=== PATIENT | male | born 1970 | race Caucasian/White ===

== ENCOUNTER 2017-03-06 09:26 | Day surgery (SDC) | payer MEDICAID ==
[~2017-03-06 09:26] MED LIST: SODIUM CHLORIDE ONE; ceFAZolin 1 GM in NORMAL SALINE MINI-BAG+ 100 ML IV ONE
[2017-03-06] MEDS ORDERED: MIDAZOLAM HCL 2 MG/2 ML SYR IV ONE ×2 (09:33→09:35)
[2017-03-06] MEDS ORDERED: LIDOCAINE HCL 1% 20 ML VIAL SUBCUT ONE ×2 (09:33→09:35)
[2017-03-06] MEDS ORDERED: ceFAZolin 1 GM in NORMAL SALINE MINI-BAG+ 100 ML IV ONE (09:35)
[2017-03-06] MEDS ORDERED: FAMOTIDINE IN SALINE, ISO-OSM 20 MG/50 ML PIGGYBACK IV SCH (09:45)
[2017-03-06] MEDS ORDERED: ROPIVACAINE HCL ONE (09:50)
[2017-03-06] MEDS ORDERED: FENTANYL 100 MCG/2 ML VIAL ONE (09:52)
[2017-03-06] MEDS ORDERED: ONDANSETRON HCL 4 MG/2 ML VIAL ONE (09:52)
[2017-03-06] MEDS ORDERED: DEXAMETHASONE 4 MG/ML VIAL ONE (09:53)
[2017-03-06] MEDS ORDERED: ROCURONIUM BROMIDE 50 MG/5 ML VIAL IV ONE (09:53)
[2017-03-06] MEDS ORDERED: SUGAMMADEX SODIUM 200 MG/2 ML VIAL IV ONE (09:53)
[2017-03-06] MEDS ORDERED: LACTATED RINGERS 1,000 ML IV SCH ×2 (10:00)
[2017-03-06 10:30] VITALS: PULSE 104; RESP 16; TEMP 98.6; O2SAT 81
[2017-03-07] MEDS ORDERED: IPRATROPIUM/ALBUTEROL 0.5/3 MG 3 ML AMPUL.NEB INHALATION ONE ×2 (10:40→11:22)
[2017-03-07] MEDS ORDERED: METHYLPREDNISOLONE SOD 125 MG/2 ML VIAL ONE (11:22)
--- NOTE | 2017-03-17 13:53 | PREOPERATIVE H&P ---
History of Present Illness (Roxanna Whiteside RN; 03/02/2017 10:19 AM) The patient is a 46 year old male who presents for a consult. The patient is seen in consultation for Dr. Sneed. Subjective Barber(Kaden Mcleod M.D.; 03/03/2017 10:50 AM) CC: Consult. Patient is a 46-year-old male has been referred by Orthopedic Surgeon Dr. Sneed for consultation, preoperative history and physical and surgical clearance. Patient is scheduled for a right rotator cuff surgery on 03/06/17. Please see Dr. Sneed's notes for further details. Patient has no other complaints at this time. He does plan to travel to [place] later this year. He has underlying obstructive sleep apnea for which he uses CPAP. Reviewed updated allergies, medications, past medical history, social history and family history in detail with no significant changes warranted. ROS: No heart, lung, kidney, liver, diabetes, thyroid, seizures, PUD, hypertension, hyperlipidemia, skin, allergies or bleeding disorders. No urinary problems. PREVENTIVE HEALTH: Tdap 2013. Declines flu shots. In light of travel to [place] recommended hepatitis A and B vaccine series and the oral typhoid vaccine which he plans to do after his surgery. Problem List/Past Medical (Roxanna Whiteside RN; 03/02/2017 4:27 PM) Complete tear of right rotator cuff (M75.121) Strain of tendon of right rotator cuff (S46.011A) Degeneration of intervertebral disc of lumbar region (M51.36) L-4; Multiple Surgeries Insomnia (G47.00) ED (erectile dysfunction) (N52.9) Tendinopathy of right rotator cuff (M67.911) Panic attack (F41.0) Hypotestosteronism (E29.1)2016 KATHY on CPAP (G47.33) Allergies (Roxanna Whiteside RN; 03/02/2017 10:17 AM) No Known Drug Allergies Family History (Roxanna Whiteside RN; 03/02/2017 10:17 AM) Mother MS, Thyroid Paternal Grandfather @ 73 of Colon Cancer Maternal Uncle MS Father Colon Polyps Paternal Uncle Colon Cancer, Stomach Cancer Social History (Roxanna Whiteside RN; 03/02/2017 10:17 AM) No drug use Occupation [employer] Alcohol use Moderate alcohol use. Marital status . Engaged Number of Children 3. + 3 Stepchildren Tobacco use Current every day smoker. 1 PPD Medication History (Roxanna Whiteside RN; 03/02/2017 10:17 AM) Medications Reconciled Depo-Testosterone (200MG/ML Solution, 2 Milliliters Intramuscular Q Month [ 400mg Total Q Month], Taken starting 06/07/2016) Active. ALPRAZolam (0.5MG Tablet, 1 Oral daily, Taken starting 11/11/2016) Active. Multi-Vitamin (1 Oral daily) Active. Past Surgical History (Roxanna Whiteside RN; 03/02/2017 4:29 PM) Discectomy Lumbar Spinal Fusion Cervical Vitals (Roxanna Whiteside RN; 03/02/2017 10:23 AM) 03/02/2017 10:19 AM Weight: 194.1 lb Height: 70.5in Height was reported by patient. Body Surface Area: 2.07 m Body Mass Index: 27.46 kg/m Temp.: 98.6F(Temporal) Pulse: 72 (Regular) Resp.: 16 (Unlabored) P.OX: 93% (Room air) BP: 136/86 (Sitting, Left Arm, Standard) Objective Barber(Kaden Mcleod M.D.; 03/03/2017 10:50 AM) GENERAL: Well-developed, well-nourished fit male in no acute distress, alert and oriented x3. HEENT: EOMI. PERRLA. Fundi benign with normal vessels and sharp disks. Normal conjunctivae. TM's normal. No coryza. Pharynx not injected. NECK: No lymphadenopathy. No thyromegaly. No carotid bruits. Neck supple. CHEST: Clear. No rales, rhonchi or wheezes. Good breath sounds and symmetry throughout. COR: Regular, rate and rhythm without murmurs, gallops, rubs or clicks. No JVD. No ectopy. ABDOMEN: Soft, nontender. No hepatosplenomegaly. No masses. No bruits. No inguinal nodes. Bowel sounds present. EXTREMITIES: No clubbing, cyanosis or edema. Good peripheral pulses. Please see Dr. Sneed's notes for further details with respect to the right shoulder. Right arm is neurovascularly intact. NEUROLOGIC: Cranial nerves 2-12 intact. Motor 5/5, sensory intact. DTRs 1+. Cerebellar function normal. EKG: Normal sinus rhythm at 97 b.p.m., Left axis deviation, PACs, borderline incomplerte bundle branch block, otherwise normal. Assessment & Plan (Roxanna Whiteside RN; 03/02/2017 4:30 PM) Pre-operative general physical examination (Z01.818) Story: Right Rotator Cuff Repair; Dr. Sneed Current Plans EKG, Complete (13739) Pt Education - How to access health information online: discussed with patient and provided information. Complete tear of right rotator cuff (M75.121) KATHY on CPAP (G47.33) Travel advice encounter (Z71.89) Encounter for immunization (Z23) Current Plans Immunization: HEP A/HEP B VACC, ADULT IM (45868) INJECTION OF ONE VACCINE (27243) Assessments Barber(Kaden Mcleod M.D.; 03/03/2017 10:50 AM) 1. Preoperative history and physical for right rotator cuff surgery. 2. Obstructive sleep apnea, on CPAP. 3. Smoker. Plans Barber(Kaden Mcleod M.D.; 03/03/2017 10:50 AM) 1. Lab work pending. 2. Encouraged patient to dramatically cut back and discussed smoking cessation. Consider switching to a Nicotine patch prior to his surgery. 3. Patient is considered cleared for above surgery otherwise. 4. Recommended hepatitis A/B 3 shot vaccine series along with the oral typhoid vaccine for travel to [place] later this year. JONATHAND
--- NOTE | 2017-03-17 13:55 | PREOPERATIVE H&P ---
History of Present Illness (Jose J Sneed DO; 02/22/2017 10:17 AM) The patient is a 46 year old male.Patient presents to review his MRI findings of his right shoulder. Allergies (Alexandrea Cardona, RN; 02/22/2017 9:01 AM) No Known Drug Allergies Family History (Alexandrea Cardona RN; 02/22/2017 9:01 AM) Uncle 2 Paternal uncle-colon polyps,colon cancer,stomach cancer Mother MS,thyroid Unremarkable Father colon polyps Uncle 1 Maternal uncle-MS Paternal Grandfather @73-colon cancer Social History (Alexandrea Cardona, RN; 02/22/2017 9:01 AM) Alcohol use Moderate alcohol use. Tobacco use Current some day smoker. 1 pack per day Medication History (Alexandrea Cardona RN; 02/22/2017 9:01 AM) Depo-Testosterone (200MG/ML Solution, 2 Milliliters Intramuscular Q Month [ 400mg Total Q Month], Taken starting 06/07/2016) Active. ALPRAZolam (0.5MG Tablet, 1 Oral daily, Taken starting 11/11/2016) Active. Ibuprofen (800MG Tablet, 1 tab Oral three times daily, as needed) Discontinued. Multi-Vitamin (1 Oral daily) Active. Medications Reconciled Review of Systems (Alexandrea Cardona RN; 02/22/2017 9:02 AM) General Not Present- Chills and Fever. Skin Not Present- Erythema, Skin Color Changes and Skin Problems. HEENT Present- Sleep Apnea (uses CPAP at [facility]). Neck Not Present- Neck Pain. Respiratory Not Present- Cough and Shortness of Breath. Cardiovascular Not Present- Chest Pain, Difficulty Breathing On Exertion, Fainting and Leg Pain and/or Swelling. Gastrointestinal Not Present- Abdominal Pain, Nausea and Vomiting. Male Genitourinary Not Present- Painful Urination and Urethral Discharge. Musculoskeletal Not Present- Decreased Range of Motion, Joint Pain, Joint Stiffness, Joint Swelling, Muscle Pain and Muscle Weakness. Neurological Not Present- Dizziness, Focal Neurological Symptoms, Numbness in extremities, Trouble walking and Weakness. Psychiatric Not Present- Anorexia, Anxiety and Depression. Endocrine Not Present- Weight Loss. Hematology Not Present- Bleeding Problems, DVT and Easy Bruising. Vitals (Alexandrea Cardona RN; 02/22/2017 9:00 AM) 02/22/2017 8:59 AM Weight: 200 lb Height: 70.5in Body Surface Area: 2.1 m Body Mass Index: 28.29 kg/m Temp.: 99.2F Pulse: 92 (Regular) Resp.: 16 (Unlabored) BP: 122/90 (Sitting, Left Arm, Standard) Physical Exam (Jose J Sneed DO; 02/22/2017 10:17 AM) The physical exam findings are as follows: Note:MRI demonstrates a full-thickness tear of his supraspinatus tendon. Also noted is partial tearing of his subscapularis. Mild arthritic changes of the acromioclavicular joint. Assessment & Plan (Jose J Sneed DO; 02/22/2017 10:18 AM) Complete tear of right rotator cuff (M75.121) Impression: After educating the patient regarding treatment options with their associated risks and benefits, the patient elected to proceed with surgical treatment of the injury/pathology with RIGHT ARTHROSCOPIC ROTATOR CUFF REPAIR. The risks and benefits of the specific procedure were explained and all questions and concerns were addressed and answered. Post operative rehabilitation requirements and expectations for optimal outcome were reviewed and the patient confirmed understanding these and committed to compliance. All questions answered. The patient will be optimized medically by consultation with their primary care physician prior to their procedure. Signed by Jose J Sneed DO (02/22/2017 10:19 AM) Patient was seen at bedside and there are no interval changes. Signed Jose J Sneed DO 03/06/2017 SANDRA
== END 2017-03-06 09:56 | disposition home or self-care (01) ==
LOC: SDS 09:26
PROVIDERS: ATTEND Orthopaedic Surgery
DX: Z53.09 Procedure and treatment not carried out because of other contraindication (principal); M75.121 Complete rotator cuff tear or rupture of right shoulder, not specified as traumatic
CPT/HCPCS: J2405; J2795; J2930; J3010; J7620

== ENCOUNTER 2017-03-07 09:52 | Observation (INO) | payer MEDICAID ==
[2017-03-07] MEDS ORDERED: ONDANSETRON HCL 4 MG/2 ML VIAL ONE (10:25)
[2017-03-07] MEDS ORDERED: KETOROLAC TROMETHAMINE 30 MG/ML VIAL ONE (10:25)
[2017-03-07] MEDS ORDERED: NORMAL SALINE 1,000 ML IV ONE (10:26)
[2017-03-07 10:27] LABS: BASOPHIL# 0.1 X 10^3uL (0.0-0.1); BASOPHILS 0.8 % (0.0-2.0); EOSINOPHILS 0.4 % (0.0-6.0); HEMATOCRIT 56.3 % (42.0-54.0); HEMOGLOBIN 19.7 g/dL (14.0-18.0); LYMPHOCYTES 27.2 % (20.0-40.0); LYMPHOCYTES# 2.7 X 10^3uL (0.8-3.8); MEAN CELL VOLUME 92.8 fL (80.0-100.0); MEAN CORPUS. HGB CONCENTRATION 35.1 g/dL (32.0-36.0); MEAN CORPUSCULAR HEMOGLOBIN 32.5 pg (29.0-35.0); MEAN PLATELET VOLUME 8.2 fL (7.4-10.4); MONOCYTES 6.7 % (2.0-10.0); MONOCYTES# 0.7 X 10^3uL (0.2-1.0); NEUTROPHILS 64.9 % (54.0-75.0); NEUTROPHILS# 6.5 X 10^3uL (2.6-6.7); PLATELET COUNT 192 X 10^3uL (130-440); RED BLOOD COUNT 6.06 X 10^6uL (4.20-6.10); RED CELL DISTRIBUTION WIDTH 13.9 % (11.5-14.5)
[2017-03-07 10:33] LABS: ALBUMIN 4.9 g/dL (3.5-5.0); ALKALINE PHOSPHATASE 49 U/L (38-126); ALT 128 U/L (21-72); AST 148 U/L (17-59); BILIRUBIN, DIRECT 0.2 mg/dL (0.0-0.4); BILIRUBIN, TOTAL 0.8 mg/dL (0.2-1.3); BLOOD UREA NITROGEN 11 mg/dL (9-20); CALCIUM 9.2 mg/dL (8.4-10.2); CHLORIDE 101 mmol/L (98-107); CREATININE 0.8 mg/dL (0.7-1.3); EST GLOMERULAR FILTRATION RATE > 60 mL/min; GLUCOSE 193 mg/dL (70-100); LIPASE 201 U/L (23-300); POTASSIUM 3.7 mmol/L (3.5-5.1); SODIUM 145 mmol/L (137-145); TOTAL PROTEIN 8.3 g/dL (6.3-8.2)
[2017-03-07] MEDS ORDERED: ZOLPIDEM TARTRATE 5 MG TABLET PO PRN (12:47)
[2017-03-07] MEDS ORDERED: ACETAMINOPHEN 325 MG TABLET PO PRN (12:47)
[2017-03-07] MEDS ORDERED: HOME MEDICATION LIST NEEDED 1 EA EACH MC ONE (12:47)
[2017-03-07] MEDS ORDERED: ALBUTEROL 0.083% 2.5 MG/3 ML VIAL.NEB NEB PRN (12:47)
[2017-03-07] MEDS ORDERED: AZITHROMYCIN 250 MG TABLET PO ONE (13:04)
--- NOTE | 2017-03-07 13:44 | ER NURSING DOCUMENTATION ---
Nurse's Notes [facility] Name:Jorge Lam Age:46 yrs Sex:Male :1970 Arrival Date:03/07/2017 Time:09:52 Bed4 Private MD:Kaden Mcleod Diagnosis:Reactive Airway Dz w/ Bronchitis;Hypoxia;Viral Illness Presentation: 03/07 10:16 Presenting complaint: Patient states: chills, body aches, and nausea. Transition of lp care: Home. Risk considerations: patient denies pain radiation to back or syncopal episode. Notified ED Physician of Wang Weaver notified. 10:16 Acuity: ALEJANDRO 3 lp 10:16 Method Of Arrival: Private Vehicle lp Triage Assessment: 10:23 General: Appears uncomfortable, Behavior is crying. Pain: Complains of pain in lp Generalized ache Pain currently is 9 out of 10 on a pain scale. EENT: No deficits noted. Reports nasal congestion nasal discharge that is watery. Neuro: No deficits noted. Cardiovascular: Capillary refill < 3 seconds Heart tones S1 S2. Respiratory: Breath sounds with wheezes bilaterally. GI: Bowel sounds present X 4 quads. : No deficits noted. Historical: - Allergies: No known drug Allergies; - Home Meds: 1. alprazolam 0.5 mg oral Tb24 1 tab once daily for Panic Disorder 2. depo testosterone 3. multivitamin oral tab - PMHx: hypotestosteronism; Lumbar degenerative disc disease; SLEEP APNEA; ANXIETY; tendinopathy of right rotator cuff; erectile dysfunction; insomnia; - PSHx: spinal fusion; Discectomy; CERVICAL SPINE SURGERY; - Tetanus: < 10 years. - Ebola Screening: : Patient negative for fever greater than or equal to 101.5 degrees Fahrenheit, and additional compatible Ebola Virus Disease symptoms. Patient denies exposure to infectious person. Patient denies travel to an Ebola-affected area in the 21 days before illness onset. . - Immunization history: Pneumococcal vaccine is not up to date, Patient has never been vaccinated Flu Vaccine None. - Social history: Smoking status: Patient uses tobacco products, current every day smoker. Screenin:30 Infectious Disease Risk None. Abuse screen: Denies threats or abuse. Denies injuries lp from another. Nutritional screening: No deficits noted. Assessment: 10:30 See Triage Assessment done by same RN. GI: Abd is soft and non tender X 4 quads. lp Reports nausea. Vital Signs: 09:57 BP 147 / 100; Pulse 97; Resp 18; Temp 97.5(O); Pulse Ox 93% on R/A; Weight 87.09 kg; lp Height 5 ft. 9 in. (175.26 cm); 10:00 BP 147 / 100; Pulse 98; Resp 16; Pulse Ox 94% on R/A; lp 10:15 Pulse Ox 85% on R/A; lp 10:30 BP 145 / 96; Pulse 98; Resp 16; Pulse Ox 97% on 2 lpm NC; lp 11:02 Pulse Ox 84% on R/A; lp 11:04 BP 141 / 89; Pulse 93; Resp 16; Pulse Ox 97% on 2 lpm NC; lp 12:44 BP 154 / 90; Pulse 105; Resp 18; Pulse Ox 92% on 2 lpm NC; lp 13:00 BP 153 / 96; Pulse 97; Resp 16; Pulse Ox 92% on 2 lpm NC; lp 13:00 BP 152 / 91; Pulse 101; Resp 14; Pulse Ox 93% on 2 lpm NC; lp 09:57 Body Mass Index 28.35 (87.09 kg, 175.26 cm) lp ED Course: 09:54 Patient arrived in ED. cc 09:54 Kaden Mcleod MD is Private Physician. cc 09:55 Javid Piña MD is Attending Physician. jm 10:[address] Piña notified. lp 10:05 Inserted peripheral IV: 20 gauge in left antecubital area and blood collected. lp 10:16 Nanda Bowers, BUZZ is Primary Nurse. lp 10:17 Triage completed. lp 10:30 Valuables Remains with patient Patient has correct armband on for positive lp identification. Placed in gown. Bed in low position. Call light in reach. Side rails up X 1. Warm blanket given. 10:52 Patient moved to radiology. sergei 10:53 CXR 2V [id number] In Process Unspecified. EDMS 10:56 Patient moved back from radiology. sergei 10:56 CXR 2V [id number] Sent. sergei 10:58 CXR 2V [id number] In Process Unspecified. EDMS 12:39 Other attached lp 12:40 Kaden Mcleod MD is Admitting Physician. chely Administered Medications: 10:15 Drug: NS 0.9% 1000 ml; Route: IV; Rate: bolus; Site: left antecubital; lp 12:14 Follow up: IV Status: Completed infusion; IV Intake: 1000ml lp 10:31 Drug: Zofran 4 mg; Route: IVP; Infused Over: 2 mins; Site: left antecubital; lp 11:06 Follow up: Response: Nausea is decreased lp 10:35 Drug: DuoNeb (Albuterol 2.5 mg, Atrovent 0.5 mg); 3 ml; Route: Nebulizer; lp 11:07 Follow up: Response: Wheezing diminished lp 11:16 Drug: DuoNeb (Albuterol 2.5 mg, Atrovent 0.5 mg); 3 ml; Route: Nebulizer; lp 12:15 Follow up: Response: Wheezing diminished lp 11:16 Drug: Solu-MEDROL 125 mg; Route: IVP; Site: left antecubital; lp 12:15 Follow up: Response: No adverse reaction lp 11:30 Drug: Toradol 30 mg; Route: IVP; Site: left antecubital; lp 12:24 Follow up: Response: Pain is decreased lp Point of Care Testing: Urine Dip: 12:37 pH: 7.0; ; Specific [place]: 1.015; Ketones: Negative; Glucose: Negative; Protein: lp Negative; Leukocytes: Negative; Nitrite: Negative ; Blood: Hemolyzed Trace; Bilirubin: Negative ; Urobilinogen: Normal Intake: 12:14 IV: 1000ml; Total: 1000ml. lp Outcome: 12:41 Decision to Admit by Provider. chely 12:45 Admitted to lp 12:45 Condition: stable 12:45 Instructed on need to admit 13:19 Report given to Nydia GERBER lp 13:41 Patient left the ED. rs Signatures: Dispatcher [employer] EDMS Breonna Murphy RN RN rs Pavlish, Lena, RN RN lp Meyer, John, MD MD jm Abbott, Adelina Pete
--- NOTE | 2017-03-07 13:44 | ER PHYSICIAN DOCUMENTATION ---
Physician Documentation [facility] Name:Jorge Lam Age:46 yrs Sex:Male :1970 Arrival Date:03/07/2017 Time:09:52 Bed4 Private MD:Kaden Mcleod ED, John Disposition: 03/07/17 12:41 Admit ordered for Kaden Mcleod. Preliminary diagnosis are Reactive Airway Dz w/ Bronchitis, Hypoxia, Viral Illness. - Bed requested for Medical/Surgical. - Condition is Fair. - Problem is new. - Symptoms are unchanged. 23 HR OBS Yes HPI: 03/07 11:12 This 46 yrs old Male presents to ER via Private Vehicle with complaints of jm Abd Pain > 50 y/o. 11:12 This 46 yrs old Male presents to ER via Private Vehicle with complaints of jm Abd Pain > 50 y/o. 11:12 The patient has shortness of breath at rest. Onset: The symptom(s)/episode jm began/occurred 5 day(s) ago. Duration: The symptoms are continuous, and are steadily getting worse. The patient's shortness of breath has no apparent modifying factors. Associated signs and symptoms: Pertinent positives: productive cough, diaphoresis, dizziness, aches. Severity of symptoms: in the emergency department the symptoms are unchanged. Risk Factors Risk factors for coronary artery disease include: This patient is a smoker. The risk factors for pulmonary embolism include: This patient is a smoker. The patient has not experienced similar symptoms in the past. The patient has been recently seen by a physician: with different complaint(s), Pt presented to preop yesterday for shoulder surgery and he was told that he was too hypoxic and was sent home, where he continued to feel lousy. He eventually ended up coming here to the ER for SOB and generalized aches. He's felt feverish. . Historical: - Allergies: No known drug Allergies; - Home Meds: 1. alprazolam 0.5 mg oral Tb24 1 tab once daily for Panic Disorder 2. depo testosterone 3. multivitamin oral tab - PMHx: hypotestosteronism; Lumbar degenerative disc disease; SLEEP APNEA; ANXIETY; tendinopathy of right rotator cuff; erectile dysfunction; insomnia; - PSHx: spinal fusion; Discectomy; CERVICAL SPINE SURGERY; - Tetanus: < 10 years. - Ebola Screening: : Patient negative for fever greater than or equal to 101.5 degrees Fahrenheit, and additional compatible Ebola Virus Disease symptoms. Patient denies exposure to infectious person. Patient denies travel to an Ebola-affected area in the 21 days before illness onset. . - Immunization history: Pneumococcal vaccine is not up to date, Patient has never been vaccinated Flu Vaccine None. - Social history: Smoking status: Patient uses tobacco products, current every day smoker. ROS: 11:16 Constitutional: Positive for body aches, chills, fatigue, fever, malaise. jm 11:16 Eyes: Negative for injury or acute deformity. 11:16 Neck: Negative for rash, stiffness, swelling. 11:16 Cardiovascular: Negative for chest pain. 11:16 Respiratory: Positive for cough, shortness of breath, Negative for orthopnea. 11:16 Abdomen/GI: Positive for nausea, vomiting, abdominal cramps. 11:16 Back: Negative for injury or acute deformity, decreased range of motion. 11:16 MS/extremity: Positive for pain, tenderness, of the posterior aspect of right shoulder. 11:16 Skin: Negative for rash, swelling. 11:16 Neuro: Positive for headache. 11:16 Psych: Positive for anxiety, Negative for alcohol dependence. 11:16 All other systems are negative. Exam: 11:17 Constitutional: The patient appears alert, awake, anxious. 11:17 Eyes: Periorbital structures: appear normal, Extraocular movements: intact throughout. 11:17 ENT: Mouth: is normal, Voice: is normal. 11:17 Neck: Thyroid: appears normal, Trachea: is midline with no obvious abnormalities. 11:17 Cardiovascular: Rate: normal, Rhythm: regular, Pulses: no pulse deficits are appreciated. 11:17 Respiratory: Respirations: normal, Breath sounds: are normal. 11:17 Abdomen/GI: Bowel sounds: normal, Palpation: abdomen is soft and non-tender. 11:17 Back: CVA tenderness, is absent, vertebral tenderness, is not appreciated. 11:17 Musculoskeletal/extremity: DVT Exam: No signs of deep vein thrombosis. Calves: are non-tender, have equal circumference. 11:17 Skin: Appearance: Color: pink, no rash present. 11:17 Neuro: Mentation: is normal, appropriate for stated age, Memory: is normal. 11:17 Psych: Behavior/mood is pleasant, cooperative, Affect is calm. Vital Signs: 09:57 BP 147 / 100; Pulse 97; Resp 18; Temp 97.5(O); Pulse Ox 93% on R/A; Weight 87.09 kg; lp Height 5 ft. 9 in. (175.26 cm); 10:00 BP 147 / 100; Pulse 98; Resp 16; Pulse Ox 94% on R/A; lp 10:15 Pulse Ox 85% on R/A; lp 10:30 BP 145 / 96; Pulse 98; Resp 16; Pulse Ox 97% on 2 lpm NC; lp 11:02 Pulse Ox 84% on R/A; lp 11:04 BP 141 / 89; Pulse 93; Resp 16; Pulse Ox 97% on 2 lpm NC; lp 12:44 BP 154 / 90; Pulse 105; Resp 18; Pulse Ox 92% on 2 lpm NC; lp 13:00 BP 153 / 96; Pulse 97; Resp 16; Pulse Ox 92% on 2 lpm NC; lp 13:00 BP 152 / 91; Pulse 101; Resp 14; Pulse Ox 93% on 2 lpm NC; lp 09:57 Body Mass Index 28.35 (87.09 kg, 175.26 cm) lp MDM: 09:55 Patient medically screened. 11:19 Differential diagnosis: Anxiety Reaction asthma, Bronchitis pneumonia, Psychogenic jm reactive airway disease. Data reviewed: vital signs, nurses notes, and as a result, I will. 12:38 Test interpretation: by ED physician or midlevel provider: plain radiologic studies. Counseling: I had a detailed discussion with the patient and/or guardian regarding: the historical points, exam findings, and any diagnostic results supporting the discharge/admit diagnosis, lab results, radiology results, the need for further work-up and treatment in the hospital. Medication response: The patient's symptoms are unchanged despite medication administration, Physician consultation: Kaden Mcleod MD regarding admission, and will see patient immediately. ED course: Pt w hypoxia w what appears to be a viral syndrome. CXR normal. Pt still w mild wheezes after 2 duonebs. I am unable to wean 02, so he will need admission. Dr. BURCH is coming up to write orders. . 12:39 Other attached lp 03/07 10:29 Order name: INFLUENZA A/B; Complete Time: 10:31 EDMS 03/07 10:29 Order name: CBC AUTO DIF, MDIF/RMOR IF IND; Complete Time: 10:46 EDMS 03/07 10:35 Order name: BASIC METABOLIC PANEL; Complete Time: 10:46 EDMS 03/07 10:35 Order name: HEPATIC PANEL; Complete Time: 10:46 EDMS 03/07 10:35 Order name: LIPASE; Complete Time: 10:46 EDMS 03/08 06:30 Order name: BASIC METABOLIC PANEL EDIN 03/08 06:42 Order name: CBC AUTO DIF, MDIF/RMOR IF IND EDMS 03/07 10:53 Order name: CXR 2V [id number] EDIN 03/07 18:27 Order name: CXR 2V [id number] EDMS 03/07 10:09 Order name: NPO; Complete Time: 10:32 03/07 10:10 Order name: Oxygen; Complete Time: 10:32 Dispensed Medications: 10:15 Drug: NS 0.9% 1000 ml; Route: IV; Rate: bolus; Site: left antecubital; lp 12:14 Follow up: IV Status: Completed infusion; IV Intake: 1000ml lp 10:31 Drug: Zofran 4 mg; Route: IVP; Infused Over: 2 mins; Site: left antecubital; lp 11:06 Follow up: Response: Nausea is decreased lp 10:35 Drug: DuoNeb (Albuterol 2.5 mg, Atrovent 0.5 mg); 3 ml; Route: Nebulizer; lp 11:07 Follow up: Response: Wheezing diminished lp 11:16 Drug: DuoNeb (Albuterol 2.5 mg, Atrovent 0.5 mg); 3 ml; Route: Nebulizer; lp 12:15 Follow up: Response: Wheezing diminished lp 11:16 Drug: Solu-MEDROL 125 mg; Route: IVP; Site: left antecubital; lp 12:15 Follow up: Response: No adverse reaction lp 11:30 Drug: Toradol 30 mg; Route: IVP; Site: left antecubital; lp 12:24 Follow up: Response: Pain is decreased lp Point of Care Testing: Urine Dip: 12:37 pH: 7.0; ; Specific [place]: 1.015; Ketones: Negative; Glucose: Negative; Protein: lp Negative; Leukocytes: Negative; Nitrite: Negative ; Blood: Hemolyzed Trace; Bilirubin: Negative ; Urobilinogen: Normal Signatures: Breonna Murphy RN RN rs Nanda Bowers RN RN lp Meyer, John, MD MD jm
[2017-03-07] MEDS ORDERED: cefTRIAXone SODIUM 1,000 MG in NORMAL SALINE MINI-BAG+ 100 ML IV SCH (14:00)
[2017-03-07] MEDS: IPRATROPIUM/ALBUTEROL 0.5/3 MG 3 ML AMPUL.NEB IH SCH ×3 (14:19→21:08)
[2017-03-07] MEDS: GUAIFENESIN ER 600 MG TABLET PO SCH (15:20)
[2017-03-07] MEDS: LACTATED RINGERS 1,000 ML IV SCH (15:25)
[2017-03-07] MEDS: ALPRAZolam 0.5 MG TABLET PO SCH (15:27)
[2017-03-07] MEDS: METHYLPREDNISOLONE SOD 125 MG/2 ML VIAL IV SCH ×2 (15:28→20:01)
--- NOTE | 2017-03-07 17:49 | RADIOLOGY REPORT ---
Two views of the chest are compared with prior films dated 01/11/2017. The heart and vessels are stable and unremarkable. The lung reyes are clear. No infiltrate, fluid or pneumothorax is seen. IMPRESSION: Stable, unremarkable two views of the chest. MTDD
--- NOTE | 2017-03-07 19:38 | HISTORY & PHYSICAL ---
DATE OF ADMISSION: 03/07/17 ATTENDING PHYSICIAN: Kaden Mcleod MD CHIEF COMPLAINT: Shortness of breath. HISTORY OF PRESENT ILLNESS: Patient is a 46-year-old male, smoker, with underlying obstructive sleep apnea, was scheduled for orthopedic right shoulder surgery yesterday. However, surgery was cancelled in that patient was found to be hypoxic with a room air pulse oximetry reading of around 80% or less. Apparently the patient has a 4-5 day history of a nonproductive cough, wheezing and shortness of breath. No fevers, chills, sinus pressure, coryza, postnasal drainage or sore throat. No anginal chest pain or edema. Patient has had hypersomnia and profound fatigue. Patient came to the Emergency Room for further evaluation and was felt to have a reactive airway disease exacerbation with profound hypoxia. ALLERGIES: None. MEDICATIONS Multivitamin 1 tab p.o. daily. Alprazolam 0.5 mg p.o. daily. Depotestosterone 400 mg IM q.month. PAST MEDICAL HISTORY 1. Obstructive sleep apnea on CPAP. 2. Hypotestosteronism. 3. Panic attacks. 4. Erectile dysfunction. 5. Insomnia. 6. Right rotator cuff tear, for which he was scheduled for surgery yesterday. 7. Lumbar disectomy. 8. Cervical spine fusion. 9. L4-S1 spine fusion. SOCIAL HISTORY: , but currently engaged. Has 3 children and 3 step children. Works for [employer]. Smokes 1 pack per day for which I once again encouraged him to quit. Moderate alcohol use. FAMILY HISTORY: Mother with multiple sclerosis and thyroid disease. Father with colon polyps. Paternal uncle with colon cancer, stomach cancer. Paternal grandfather at 73 of colon cancer. Maternal uncle with multiple sclerosis. REVIEW OF SYSTEMS: No heart, asthma, emphysema, kidney, liver, diabetes, seizures, peptic ulcer disease, skin, allergy or bleeding disorders. No urinary problems. PREVENTATIVE HEALTH: Tdap 2013. Does not get flu shots. PHYSICAL EXAMINATION VITAL SIGNS: See ER records for vital signs and room air pulse oximetry reading , which is approximately 85%. GENERAL: Well-developed, well-nourished muscular male, no respiratory distress , alert and oriented x3. HEENT: EOMI. PERRL. Normal conjunctivae. TMs normal. Nasopharynx normal. Pharynx not injected. Sinuses nontender. NECK: No lymphadenopathy. No thyromegaly. No carotid bruits. Neck supple. CHEST: Diminished breath sounds throughout with expiratory wheezes throughout. No rales or rhonchi. COR: RRR without murmurs, gallops, rubs or clicks. No jugular venous distention. No ectopy. ABDOMEN: Soft, nontender. No hepatosplenomegaly. No masses. No bruits. No inguinal nodes. Bowel sounds present. LOWER EXTREMITIES: No edema. Good peripheral pulses. Negative Homans sign. No calf or popliteal tenderness. IMAGING: Chest x-ray normal with no evidence of infiltrate or cardiomegaly. LABORATORY DATA: White blood cell count 10.0 with machine differential 64.9% neutrophils and 27.2% lymphocytes. Hemoglobin and hematocrit 19.7/56.3, platelets 192,000. Sodium 145, potassium 3.7, chloride 101, CO2 24, BUN 11, creatinine 0.8, glucose 193, calcium 9.2, total bilirubin 0.8, AST 140, ALT 128 , alkaline phosphatase 49, total protein 80.3, albumin 4.9, lipase 201. Quick flu negative. Sputum culture pending. ASSESSMENT 1. Reactive airways disease exacerbation with associated profound hypoxia. 2. Right rotator cuff injury. 3. Obstructive sleep apnea on CPAP. PLAN 1. Sputum culture pending. 2. Rocephin 1 gram IM q.24 hours and Z-pack. 3. Solu-Medrol 60 mg IV q.6 hours. 4. IV hydration. 5. Mucinex 1200 mg p.o. b.i.d. 6. DuoNeb updraft treatments q.4 hours, plus Albuterol updrafts q.1 hour PRN. 7. Will need to reschedule right shoulder orthopedic surgery for a later date. 8. Respiratory therapy consult. Copies to: Jose J Sneed MD [facility]
[2017-03-07] MEDS ORDERED: O2 HUMIDIFIER 650 ML BOTTLE INHALATION ONE (19:39)
[2017-03-07] MEDS: NICOTINE 21 MG PATCH TRANSDERM SCH (20:01)
[2017-03-08] MEDS: METHYLPREDNISOLONE SOD 125 MG/2 ML VIAL IV SCH (01:02)
[2017-03-08] MEDS: GUAIFENESIN ER 600 MG TABLET PO SCH (01:02)
[2017-03-08] MEDS: IPRATROPIUM/ALBUTEROL 0.5/3 MG 3 ML AMPUL.NEB IH SCH ×2 (01:02→05:19)
[2017-03-08] MEDS: LACTATED RINGERS 1,000 ML IV SCH (01:02)
[2017-03-08 06:15] LABS: HEMATOCRIT 50.2 % (42.0-54.0); LYMPHOCYTES 3.8 % (20.0-40.0); LYMPHOCYTES# 0.5 X 10^3uL (0.8-3.8); MEAN CELL VOLUME 93.5 fL (80.0-100.0); MEAN CORPUS. HGB CONCENTRATION 33.8 g/dL (32.0-36.0); MEAN CORPUSCULAR HEMOGLOBIN 31.6 pg (29.0-35.0); MEAN PLATELET VOLUME 8.6 fL (7.4-10.4); MONOCYTES 2.8 % (2.0-10.0); MONOCYTES# 0.4 X 10^3uL (0.2-1.0); NEUTROPHILS# 13.5 X 10^3uL (2.6-6.7); PLATELET COUNT 161 X 10^3uL (130-440); RED BLOOD COUNT 5.37 X 10^6uL (4.20-6.10); RED CELL DISTRIBUTION WIDTH 13.6 % (11.5-14.5); WHITE BLOOD COUNT 14.4 X 10^3uL (3.9-10.7)
[2017-03-08 06:24] LABS: BLOOD UREA NITROGEN 7 mg/dL (9-20); CALCIUM 9.1 mg/dL (8.4-10.2); CHLORIDE 104 mmol/L (98-107); CREATININE 0.6 mg/dL (0.7-1.3); EST GLOMERULAR FILTRATION RATE > 60 mL/min; GLUCOSE 157 mg/dL (70-100); POTASSIUM 3.7 mmol/L (3.5-5.1); SODIUM 143 mmol/L (137-145)
[2017-03-08 06:29] VITALS: BP 135/89; PULSE 89; RESP 17; TEMP 98.1; O2SAT 93
[2017-03-08 06:41] LABS: NEUTROPHILS 93.4 % (54.0-75.0)
[2017-03-08] MEDS: ALPRAZolam 0.5 MG TABLET PO SCH (08:21)
[2017-03-08] MEDS: NICOTINE 21 MG PATCH TRANSDERM SCH (08:21)
[2017-03-08] MEDS ORDERED: NON-FORMULARY MEDICATION (Alprazolam 0.5 MG) PO SCH (09:00)
[2017-03-08] MEDS ORDERED: AZITHROMYCIN 250 MG TABLET PO SCH (09:00)
--- NOTE | 2017-03-08 11:47 | PROGRESS NOTE: IM SOAP ---
IM: PN Subjective Interval history: Feeling much better. Decreased wheeze and cough and SOB. RA pulse ox 95% Pt enthusiastic about smoking cessation. IM: PN Objective Exam - I&O/Vital Signs I&O: Intake & Output 03/07/17 03/08/17 03/08/17 21:59 05:59 13:59 Intake Total 848 935 7733 Output Total 300 Balance 087 546 8376 Weight 87.09 kg 80.739 kg Intake: IV 1426 Left Forearm 1426 Oral 840 990 Output: Urine 300 Other: Urine Appearance Clear Clear Clear Urine Color Yellow Yellow Yellow Stool Size Moderate Moderate Stool Characteristics Hard Hard Brown Brown Voiding Method Toilet Toilet # Voids 1 # Bowel Movements 1 Vital Signs: Last Vital Signs Temp 36.7 C 03/08/17 06:28 Pulse 89 03/08/17 06:28 Resp 17 03/08/17 09:00 BP 135/89 03/08/17 06:28 Pulse Ox 93 03/08/17 09:00 Oxygen Flow Rate 1 Oxygen Delivery Method Nasal Cannula - Respiratory Respiratory exam: Present: clear. Absent: rales, rhonchi, wheezes - Cardiovascular Cardiovascular exam: Present: RRR. Absent: systolic murmur - GI/Abdominal GI/Abdominal exam: Present: soft. Absent: tenderness - Extremities Exam Extremities exam: Absent: calf tenderness, edema - Lab Labs: Laboratory Last Values WBC 14.4 X 10^3uL (3.9-10.7) H 03/08/17 05:15 RBC 5.37 X 10^6uL (4.20-6.10) 03/08/17 05:15 Hgb 17.0 g/dL (14.0-18.0) 03/08/17 05:15 Hct 50.2 % (42.0-54.0) 03/08/17 05:15 MCV 93.5 fL (80.0-100.0) 03/08/17 05:15 MCH 31.6 pg (29.0-35.0) 03/08/17 05:15 MCHC 33.8 g/dL (32.0-36.0) 03/08/17 05:15 RDW 13.6 % (11.5-14.5) 03/08/17 05:15 Plt Count 161 X 10^3uL (130-440) 03/08/17 05:15 MPV 8.6 fL (7.4-10.4) 03/08/17 05:15 Neutrophils % 93.4 % (54.0-75.0) H 03/08/17 05:15 Lymphocytes % 3.8 % (20.0-40.0) L 03/08/17 05:15 Eosinophils % 0.0 % (0.0-6.0) 03/08/17 05:15 Basophils % 0.0 % (0.0-2.0) 03/08/17 05:15 Neutrophils # 13.5 X 10^3uL (2.6-6.7) H 03/08/17 05:15 Lymphocytes # 0.5 X 10^3uL (0.8-3.8) L 03/08/17 05:15 Monocytes 2.8 % (2.0-10.0) 03/08/17 05:15 Monocytes # 0.4 X 10^3uL (0.2-1.0) 03/08/17 05:15 Eosinophils # 0.0 X 10^3uL (0.0-0.4) 03/08/17 05:15 Basophils # 0.0 X 10^3uL (0.0-0.1) 03/08/17 05:15 Sodium 143 mmol/L (137-145) 03/08/17 05:15 Potassium 3.7 mmol/L (3.5-5.1) 03/08/17 05:15 Chloride 104 mmol/L (98-107) 03/08/17 05:15 Carbon Dioxide 26 mmol/L (22-30) 03/08/17 05:15 BUN 7 mg/dL (9-20) L 03/08/17 05:15 Creatinine 0.6 mg/dL (0.7-1.3) L 03/08/17 05:15 GFR Calculation > 60 mL/min 03/08/17 05:15 Glucose 157 mg/dL (70-100) H 03/08/17 05:15 Calcium 9.1 mg/dL (8.4-10.2) 03/08/17 05:15 Total Bilirubin 0.8 mg/dL (0.2-1.3) 03/07/17 10:05 Direct Bilirubin 0.2 mg/dL (0.0-0.4) 03/07/17 10:05 AST 148 U/L (17-59) H 03/07/17 10:05 ALT 128 U/L (21-72) H 03/07/17 10:05 Alkaline Phosphatase 49 U/L (38-126) 03/07/17 10:05 Total Protein 8.3 g/dL (6.3-8.2) H 03/07/17 10:05 Albumin 4.9 g/dL (3.5-5.0) 03/07/17 10:05 Lipase 201 U/L (23-300) 03/07/17 10:05 Influenza Types A,B Ag Inf a & b negative 03/07/17 10:05 Assessment and Plan - Date of Encounter Date of Encounter: 03/08/17 (1) Exacerbation of RAD (reactive airway disease) Status: Acute Assessment and plan: Dramatic improvement since yesterday D/C Home Motivated to smoking cessation Current Visit: Yes (2) Hypoxia Status: Acute Assessment and plan: Resolved with pulse ox 95% now on RA Current Visit: Yes (3) Rotator cuff injury Status: Acute Assessment and plan: Ortho, Surgery delayed Current Visit: Yes (4) KATHY (obstructive sleep apnea) Status: Acute Assessment and plan: CPAP Current Visit: Yes - Time Spent With Patient Total time spent with greater than 50% in coordination of care (as documented) at patient's floor/unit and/or counseling patient: Quality Questions - VTE Prophylaxis Assessment VTE Present on Admission?: No Patient at risk for venous thromboembolism?: No VTE Risk Level: Very Low Risk Pharmaceutical VTE prophylaxis contraindication reason: not indicated Mechanical VTE prophylaxis contraindication reason: not indicated
--- NOTE | 2017-03-08 14:48 | DISCHARGE SUMMARY ---
DATE OF ADMISSION: 03/07/17 DATE OF DISCHARGE: 03/08/17 ATTENDING PHYSICIAN: Kaden Mcleod MD DIAGNOSES 1. Reactive airway disease exacerbation. 2. Hypoxia. 3. Obstructive sleep apnea on CPAP. 4. Right rotator cuff injury. HISTORY OF PRESENT ILLNESS: Patient is a 46-year-old male, smoker, with underlying obstructive sleep apnea, was scheduled for orthopedic right shoulder surgery 2 days ago. However, the surgery was cancelled in that the patient was found to be hypoxia with a room air pulse oximetry reading of around 88% or less. Apparently, the patient had a 4-5 day history of a nonproductive cough, wheezing and shortness of breath. No fevers, chills, sinus pressure, coryza, postnasal drainage or sore throat. No anginal chest pain. No edema. Patient has had hypersomnia and profound fatigue. Patient came to the Emergency Room for further evaluation and was felt to have a reactive airway disease exacerbation with profound hypoxia, with a pulse oximetry reading of 85%, requiring oxygen at 2 liters per minute by nasal prongs. Chest x-ray was negative. White blood cell count was 10.0 with normal differential. HOSPITAL COURSE: Patient was admitted with reactive airway disease exacerbation with associated profound hypoxia. Sputum cultures were not obtained in that he was unable to bring up a specimen. Patient was started on Solu-Medrol 60 mg IV q.6 hours, Mucinex 1200 mg p.o. b.i.d., Duoneb updraft treatments q.4 hours, Rocephin 1 gram IV q.24 hours and a Z-pack. Respiratory therapy was consulted. By the next day, respiratory symptoms had dramatically improved, and his room air pulse oxygen was 95%. Lungs were clear and overall he felt dramatically better. He was started on a Nicotine patch and smoking cessation information was provided; patient is extremely motivated to quit smoking at this point. DISCHARGE INSTRUCTIONS: Patient may participate in activities as able. He is on a regular diet. He will have a follow up appointment with Dr. Mcleod next week. DISCHARGE MEDICATIONS Azithromycin 240 mg p.o. daily x3 more days. Prednisone 5 mg p.o. taper, 7 tabs down to 1 tab over 7 days. ProAir HFA inhaler 2 puffs q.i.d. with chamber, 1 year refill. Nicotine 21 mg patch daily x30 days, 14 mg patch daily x30 days, 7 mg patch daily x30-90 days. Refill Alprazolam 0.5 mg p.o. daily #90, call for refill. Multivitamin 1 tab p.o. daily. Depo-testosterone 400 mg IM q.month. Tylenol PRN shoulder pain. Copies to: Dr. Nedra FLORES
[2017-03-08] MEDS ORDERED: cefTRIAXone SODIUM 1,000 MG in NORMAL SALINE MINI-BAG+ 100 ML IV SCH (16:00)
== END 2017-03-08 12:02 | disposition home or self-care (01) ==
LOC: ER 09:52 → IN 13:27
PROVIDERS: ADMIT Family Medicine; ATTEND Family Medicine
DX: J45.901 Unspecified asthma with (acute) exacerbation (principal); Z72.0 Tobacco use; G47.33 Obstructive sleep apnea (adult) (pediatric); M75.101 Unspecified rotator cuff tear or rupture of right shoulder, not specified as traumatic
CPT/HCPCS: 36415; 71020; 80048; 80076; 83690; 85025; 87449; 93041; 94640; 94664; 96361; 96365; 96366; 96374; 96375; 96376; 99285; E0555; G0378; J0696; J1885; J2405; J2930; J7030; J7120; J7620; Q0144; S4990